=== PATIENT | female | born 1995 | race African-American/Black ===

== ENCOUNTER 2018-01-29 11:08 | Emergency (ER) | payer MEDICAID ==
[~2018-01-29] VITALS: Ht 160 cm; Wt 48.0 kg
[2018-01-29 11:12] VITALS: BP 137/100
[2018-01-29] MEDS ORDERED: IBUPROFEN 600MG TABLET PO ONE (11:45)
== END 2018-01-29 11:40 | disposition home or self-care (01) ==
LOC: ER 11:16
DX: L02.31 Cutaneous abscess of buttock (principal); R03.0 Elevated blood-pressure reading, without diagnosis of hypertension
CPT/HCPCS: 99283

== ENCOUNTER 2019-03-19 20:28 | Emergency (ER) | payer MEDICAID | END 2019-03-19 21:20 | disposition left against medical advice (07) | LOC: ER 20:28 | DX: Z53.21 Procedure and treatment not carried out due to patient leaving prior to being seen by health care provider (principal) ==

== ENCOUNTER 2021-12-15 21:56 | Emergency (ER) | payer MEDICAID ==
[~2021-12-15] VITALS: Ht 157.5 cm; Wt 59.0 kg
[2021-12-15 22:08] VITALS: BP 142/97
[2021-12-16] MEDS ORDERED: IBUPROFEN 400MG TABLET PO ONE (00:45)
[2021-12-16] MEDS ORDERED: AMOX1TAB16 MT ×3 (01:56→01:57)
== END 2021-12-16 02:15 | disposition home or self-care (01) ==
LOC: ER 21:56
DX: J02.9 Acute pharyngitis, unspecified (principal)
CPT/HCPCS: 99283